=== PATIENT | female | born 1960 | race Two or more races ===

== ENCOUNTER 2017-07-13 21:03 | Emergency (ER) | payer SELFPAY ==
[~2017-07-13] VITALS: Ht 152.4 cm; Wt 59.0 kg
[2017-07-13] MEDS ORDERED: Ketorolac 60mg Inj IM ONE (21:15)
--- NOTE | 2017-07-13 21:15 | Emergency Room Report ---
History of Present Illness General Chief Complaint: Behavioral Complaint Source: Patient, EMS Present Illness HPI Patient presents with complaints of right hip pain Reports that the pain started about 3 months ago She does not recall any obvious trauma denies any fevers or chills Ava that the pain had worsened over the past day and patient was sitting on the ground complaining of pain when paramedics were contacted denies any leg pain on that side denies any low back pain And points specifically to the right hip Denies any vomiting or diarrhea Allergies: Coded Allergies: No Known Allergies (Unverified , 07/13/17) Patient History Past Medical History: see triage record Pertinent Family History: none Last Menstrual Period: n/a Reviewed Nursing Documentation: PMH: Agreed; PSxH: Agreed Nursing Documentation-PMH Past Medical History: No Stated History Review of Systems All Other Systems: negative except mentioned in HPI Physical Exam Vital Signs Date Time Temp Pulse Resp B/P (MAP) Pulse Ox O2 Delivery O2 Flow Rate FiO2 07/13/17 20:56 98.1 77 14 97/60 Room Air 98.1 Sp02 EP Interpretation: reviewed, normal General Appearance: no apparent distress - However appears somewhat disheveled Head: normocephalic, atraumatic Eyes: bilateral eye PERRL, bilateral eye EOMI ENT: hearing grossly normal, normal pharynx Neck: supple Respiratory: lungs clear Cardiovascular #1: regular rate, rhythm, no edema Gastrointestinal: non tender, soft Musculoskeletal: other - Tender on palpation of the right hip however able to lift at the knee able to gregory and invert the right leg Neurologic: alert, oriented x3, temporary administrative assistant III-XII nml as tested, motor strength/tone normal Skin: other - Somewhat disheveled appearance however no obvious erythema or swelling or cellulitis Lymphatic: no adenopathy Medical Decision Making Diagnostic Impression: Primary Impression: Hip pain Additional Impression: Cellulitis ER Course Given the patient's complaint and presentation initial x-ray was obtained did not show any acute disease Therefore CT imaging was obtained showed some inflammatory process around the buttock area on the right side clinically the patient does have some mild erythema No signs of any septic joint and the hip itself is freely mobile without limitation Patient's blood work was initiated which is essentially at baseline levels patient was treated for early initial cellulitis provided with antibiotics here Tested for ambulation and bearing weight and the patient is able to do so appropriately and will have initial conservative outpatient trial Labs Test 4/2/18 00:15 White Blood Count 10.3 K/UL (4.8-10.8) Red Blood Count 3.40 M/UL (4.20-5.40) Hemoglobin 9.2 G/DL (12.0-16.0) Hematocrit 28.1 % (37.0-47.0) Mean Corpuscular Volume 83 FL (80-99) Mean Corpuscular Hemoglobin 27.0 PG (27.0-31.0) Mean Corpuscular Hemoglobin Concent 32.7 G/DL (32.0-36.0) Red Cell Distribution Width 12.9 % (11.6-14.8) Platelet Count 601 K/UL (150-450) Mean Platelet Volume 5.7 FL (6.5-10.1) Neutrophils (%) (Auto) 64.2 % (45.0-75.0) Lymphocytes (%) (Auto) 16.0 % (20.0-45.0) Monocytes (%) (Auto) 6.1 % (1.0-10.0) Eosinophils (%) (Auto) 13.2 % (0.0-3.0) Basophils (%) (Auto) 0.5 % (0.0-2.0) Sodium Level 138 MMOL/L (136-145) Potassium Level 3.4 MMOL/L (3.5-5.1) Chloride Level 104 MMOL/L (98-107) Carbon Dioxide Level 27 MMOL/L (21-32) Blood Urea Nitrogen 21 mg/dL (7-18) Creatinine 0.8 MG/DL (0.55-1.30) Estimat Glomerular Filtration Rate > 60 mL/min (>60) Glucose Level 103 MG/DL (74-106) Calcium Level 8.3 MG/DL (8.5-10.1) Other X-Ray Diagnostic Results Other X-Ray Diagnostic Results : X-Ray ordered: Right hip # of Views/Limited Vs Complete: 3 View Indication: Pain EP Interpretation: Yes Interpretation: no dislocation, no soft tissue swelling, no fractures Impression: No acute disease Electronically Signed by: Cortez Castro, DO CT/MRI/US Diagnostic Results CT/MRI/US Diagnostic Results : Impression CT pelvicImpression: Edema of the right gluteal musculature. This is nonspecific , but could indicate infection. MRI or repeat CT with contrast may better evaluate No acute bony trauma Minimal degenerative changes 6 cm right ovarian cyst. Consider further follow-up with pelvic sonography Generalized edema of the pelvic and subcutaneous fat Bilateral inguinal lymphadenopathy Incidental finding of small right-sided vaginal wall cyst Last Vital Signs Date Time Temp Pulse Resp B/P (MAP) Pulse Ox O2 Delivery O2 Flow Rate FiO2 07/13/17 20:56 98.1 77 14 97/60 Room Air 98.1 Status: improved Disposition: HOME, SELF-CARE Condition: Improved Scripts Ibuprofen* (MOTRIN*) 600 Mg Tablet 600 MG ORAL Q8H PRN for For Pain, #20 TAB 0 Refills Prov: Cortez Castro DO 07/14/17 Cephalexin* (KEFLEX*) 500 Mg Capsule 500 MG ORAL Q6H, #28 CAP 0 Refills Prov: Cortez Castro DO 07/14/17 Additional Instructions: Patient is provided with the discharge instructions notified to follow up with primary doctor in the next 2-3 days otherwise return to the er with any worsening symptoms. Please note that this report is being documented using [employer] technology. This can lead to erroneous entry secondary to incorrect interpretation by the dictating instrument. Cortez Castro DO Jul 13, 2017 21:15
[2017-07-14] VITALS: BP 111/78
[2017-07-14] MEDS ORDERED: Cephalexin 500mg cap ORAL ONE
[2017-07-14 00:35] LABS: BASOPHILS % (AUTO) 0.5 % (0.0-2.0); EOSINOPHILS % (AUTO) 13.2 % (0.0-3.0); HEMATOCRIT 28.1 % (37.0-47.0); HEMOGLOBIN 9.2 G/DL (12.0-16.0); MEAN CORPUSCULAR VOLUME 83 FL (80-99); MONOCYTES % (AUTO) 6.1 % (1.0-10.0); NEUTROPHILS % (AUTO) 64.2 % (45.0-75.0); PLATELET COUNT 601 K/UL (150-450); RED CELL DISTRIBUTION WIDTH 12.9 % (11.6-14.8); WHITE BLOOD COUNT 10.3 K/UL (4.8-10.8)
[2017-07-14 00:56] LABS: BLOOD UREA NITROGEN 21 mg/dL (7-18); CALCIUM 8.3 MG/DL (8.5-10.1); CARBON DIOXIDE 27 MMOL/L (21-32); CREATININE 0.8 MG/DL (0.55-1.30)
[2017-07-14 01:02] LABS: CHLORIDE 104 MMOL/L (98-107); POTASSIUM 3.4 MMOL/L (3.5-5.1); SODIUM 138 MMOL/L (136-145)
[2017-07-14] MEDS ORDERED: KEFLEX500 MG ORAL (01:44)
[2017-07-14] MEDS ORDERED: IBUPROFEN600 MG ORAL (01:44)
[2017-07-14 05:15] VITALS: BP 120/89
[2017-07-14 05:17] VITALS: BP 120/89
--- NOTE | 2017-07-14 09:14 | Diagnostic Imaging Report ---
Indication: Pain of unknown cause Technique: 2 views of the right hip Comparison: none Findings: No acute fractures. No dislocations. There are degenerative proliferative changes of the acetabulum. Joint space is preserved Impression: Mild degenerative changes. No acute bony trauma This agrees with the preliminary interpretation provided overnight by [facility].
--- NOTE | 2017-07-14 09:38 | Diagnostic Imaging Report ---
Indication: Right hip pain Technique: Noncontrast spiral acquisitions obtained through the pelvis. Multiplanar reconstructions generated. Total dose length product 295.97 mGycm. CTDIvol(s) 10.87 mGy. Dose reduction achieved using automated exposure control Comparison: Plain radiograph 2 hours earlier Findings: No acute hip or pelvic fracture demonstrated. There is degenerative spurring of the acetabular lips bilaterally. The joint spaces are preserved. There is edema of the right gluteal musculature. This is somewhat ill-defined, particularly in the absence of IV contrast. There is generalized edema of the subcutaneous and pelvic fat. Numerous and somewhat enlarged lymph nodes are seen in the bilateral inguinal regions, largest right inguinal node measuring 3.1 cm long axis dimension. There is a 1.5 cm right vaginal wall cyst. There is a 6 cm right ovarian cyst. Impression: Edema of the right gluteal musculature. This is nonspecific, but could indicate infection. MRI or repeat CT with contrast may better evaluate No acute bony trauma Minimal degenerative changes 6 cm right ovarian cyst. Consider further follow-up with pelvic sonography Generalized edema of the pelvic and subcutaneous fat Bilateral inguinal lymphadenopathy Incidental finding of small right-sided vaginal wall cyst This agrees with the preliminary interpretation provided overnight by [facility]. The CT scanner at [facility] is accredited by the [employer] and the scans are performed using protocols designed to limit radiation exposure to as low as reasonably achievable to attain images of sufficient resolution adequate for diagnostic evaluation.
== END 2017-07-14 05:41 | disposition home or self-care (01) ==
LOC: EDBD 21:03 → EMR 21:30
DX: M25.551 Pain in right hip (principal); L03.115 Cellulitis of right lower limb; N83.201 Unspecified ovarian cyst, right side; R59.0 Localized enlarged lymph nodes; N89.8 Other specified noninflammatory disorders of vagina
CPT/HCPCS: 36415; 72192; 80048; 85025; 96372; 99284